=== PATIENT | female | born 1965 ===

== ENCOUNTER 2019-03-20 09:20 | Inpatient (IN) | payer MEDICAID ==
[2019-02-26 12:04] LABS: HEMATOCRIT 44.6 % (37.0-47.0); HEMOGLOBIN 14.6 G/DL (12.0-16.0); MEAN CORPUSCULAR VOLUME 94 FL (80-99); PLATELET COUNT 64 K/UL (150-450); RED BLOOD COUNT 4.77 M/UL (4.20-5.40); RED CELL DISTRIBUTION WIDTH 12.2 % (11.6-14.8); WHITE BLOOD COUNT 5.5 K/UL (4.8-10.8)
[2019-02-26 12:17] LABS: APPEARANCE,URINE CLEAR; BILIRUBIN, URINE NEGATIVE (NEGATIVE); COLOR,URINE PALE YELLOW; GLUCOSE, URINE (UA) NEGATIVE (NEGATIVE); KETONES,URINE NEGATIVE (NEGATIVE); LEUKOCYTE ESTERASE ,URINE 1+ (NEGATIVE); NITRITE,URINE NEGATIVE (NEGATIVE); PH,URINE 7 (4.5-8.0); PROTEIN,URINE NEGATIVE (NEGATIVE); UROBILINOGEN,URINE NORMAL MG/DL (0.0-1.0)
[2019-02-26 12:26] LABS: INR 1.1 (0.9-1.1)
[2019-02-26 12:28] LABS: ANION GAP 6 mmol/L (5-15); BLOOD UREA NITROGEN 4 mg/dL (7-18); CARBON DIOXIDE 28 MMOL/L (21-32); CHLORIDE 109 MMOL/L (98-107); CREATININE 0.6 MG/DL (0.55-1.30); POTASSIUM 3.6 MMOL/L (3.5-5.1); SODIUM 143 MMOL/L (136-145)
--- NOTE | 2019-03-07 16:59 | Cardiology Report ---
APPROVED REPORT EKG Measurement Heart [id number] IL [id number] [id number] Sinus bradycardia Otherwise normal ECG
--- NOTE | 2019-03-16 14:44 | NUR ---
[employer] translation services used to obtained medical history with simulation educator: Britany ID #[id number].
--- NOTE | 2019-03-19 15:45 | Pre-op HX & Phy Repo 2 SIG ---
DATE OF PLANNED SURGERY: March 20, 2019 HISTORY OF PRESENT ILLNESS: The patient is a 53-year-old female, in overall stable health with invasive ductal carcinoma of the right breast. She was scheduled to undergo right breast partial mastectomy including the nipple and areola as well as right axillary lymph node biopsy. The patient presented recently with a right breast mass. Mammogram revealed nipple inversion with a subareolar density. Ultrasound revealed a 2 cm mass at 1 o'clock 1 cm from the nipple under the areolar border. Core biopsy revealed invasive ductal carcinoma. Estrogen and progesterone receptor positive. HER2 negative. Ki-67 borderline at 12%. After appropriate evaluation including consultation with Oncology, the decision has been made to perform a right breast partial mastectomy including the nipple-areolar complex. The patient understands and agrees. PAST MEDICAL HISTORY AND MEDICATIONS: Glipizide for diabetes, lisinopril for hypertension. ALLERGIES: None. OPERATION: section. REVIEW OF SYSTEMS: Para 4, 4. Last menstrual period at age 43; 10 years ago. PHYSICAL EXAMINATION: VITAL SIGNS: The patient is 5 feet, 174 pounds. Vital signs, pulse 70, blood pressure 164/84. HEENT: Within normal limits. LUNGS: Clear. HEART: Regular rhythm. BREASTS: Moderately large and ptotic. The left breast is unremarkable. Right breast has a 2 cm mass abutting the nipple at 1 o'clock under the areola with inverted nipple and fixation to the mass. There is no fixation to the chest wall. There is no palpable axillary or supraclavicular lymphadenopathy. ABDOMEN: Soft. PELVIC AND RECTAL: Per primary care. EXTREMITIES: Without edema. NEUROLOGIC: Physiologic. IMPRESSION: Invasive ductal carcinoma, right breast involving nipple and areola. PLAN: Right breast partial mastectomy to include the nipple and areola, and right axillary lymph node biopsy. DISCUSSION: I have had a full discussion with the patient regarding the nature of her condition, the nature of the surgery, indications, alternatives, options, and risks including bleeding, infection, need for additional surgery or treatments based on final pathology, scarring and deformity of the breast, need for drain for the axilla, etc. All questions have been answered. She understands and agrees to proceed. Prabhjot Burns M.D. DR: RANJIT JOB#: [id number] CC: ROCIO
[~2019-03-20] VITALS: Ht 154.9 cm; Wt 80.3 kg
[2019-03-20] VITALS (16 sets, daily range): BP systolic 117–168; BP diastolic 67–84
[2019-03-20] MEDS ORDERED: LR 1000ml 1,000 ML IVLG SCH (09:39)
[2019-03-20] MEDS ORDERED: Midazolam 2mg/2ml Inj IVP PRN (09:45)
[2019-03-20] MEDS ORDERED: Meperidine 50mg/ml Inj(FOR RIGORS ONLY) IVP PRN (09:45)
[2019-03-20] MEDS ORDERED: HYDROcodone/Acetamin 7.5/325 tab ORAL PRN (09:45)
[2019-03-20] MEDS ORDERED: Atropine Sulfate 0.4mg/ml inj IVP PRN (09:45)
[2019-03-20] MEDS ORDERED: Metoclopramide 10mg/2ml Inj IVP PRN (09:45)
[2019-03-20] MEDS ORDERED: fentaNYL 100 mcg/2 mL IV PRN (09:45)
[2019-03-20] MEDS ORDERED: LORazepam Inj 2mg/ml 1ml IV PRN (09:45)
[2019-03-20] MEDS ORDERED: Hydromorphone 0.5mg/0.5ml inj IVP PRN (09:45)
[2019-03-20] MEDS ORDERED: DiphenhydrAMINE 50mg/ml Inj IVP PRN (09:45)
[2019-03-20] MEDS ORDERED: oxyCODONE HCL/Acetaminophen 5/325mg ORAL PRN (09:45)
[2019-03-20] MEDS ORDERED: HYDROcodone/Acetamin 5/325 tab ORAL PRN ×2 (09:45→13:45)
[2019-03-20] MEDS ORDERED: Ketorolac 30mg Inj IV PRN ×2 (09:45)
[2019-03-20] MEDS ORDERED: Labetalol 5mg/ml 20ml vial IV PRN (09:45)
--- NOTE | 2019-03-20 09:47 | Anethesia Preoperative Eval ---
Anesthesia Pre-op PMH/ROS General Date of Evaluation: Mar 20, 2019 Time of Evaluation: 11:56 Anesthesiologist: Link ASA Score: ASA 3 Mallampati Score Class I : Soft palate, uvula, fauces, pillars visible Class II: Soft palate, uvula, fauces visible Class III: Soft palate, base of uvula visible Class IV: Only hard plate visible Mallampati Classification: Class III Surgeon: Grant Diagnosis: Right Breast CA Surgical Procedure: Mastectomy, Lymph Node Bx, Right Anesthesia History: none Family History: no anesthesia problems Allergies: Coded Allergies: No Known Allergies (Unverified , 03/20/19) Medications: see eMAR Patient NPO?: Yes Past Medical History Cardiovascular: Reports: HTN Gastrointestinal/Genitourinary: Reports: GERD, other - Cirrohsis Endocrine: Reports: DM PSxH Narrative: C/S Anesthesia Pre-op Phys. Exam Physician Exam vital Vital Signs Date Time Temp Pulse Resp B/P (MAP) Pulse Ox O2 Delivery O2 Flow Rate FiO2 03/20/19 10:14 98.1 67 18 139/79 (99) 95 03/20/19 10:14 Room Air Constitutional: NAD Neurologic: CN 2-12 intact Cardiovascular: RRR Respiratory: CTA Gastrointestinal: S/NT/ND Airway Exam Mallampati Score: Class III MO: limited ROM: limited Teeth: missing, intact Anesthesia Pre-op A/P Risk Assessment & Plan Assessment: ASA 3 Plan: GA, SED Status Change Before Surgery: No Pre-Antibiotics Dru Gram Ancef IV Given Within 1 Hr of Incision: Yes Time Given: 12:11 Phil Maza MD Mar 20, 2019 09:47
--- NOTE | 2019-03-20 09:48 | Immediate Post-Op Evaluation ---
Immediate Post-Op Evalulation Immediate Post-Op Evalulation Procedure: Mastectomy, Lymph Node Bx, Right Date of Evaluation: Mar 20, 2019 Time of Evaluation: 13:53 IV Fluids: 800 LR Blood Products: 0 Estimated Blood Loss: 25 Urinary Output: 0 Blood Pressure Systolic: 127 Blood Pressure Diastolic: 70 Pulse Rate: 69 Respiratory Rate: 16 O2 Sat by Pulse Oximetry: 100 Temperature (Fahrenheit): 97.2 Pain Score (1-10): 2 Nausea: No Vomiting: No Complications 0 Patient Status: awake, reacts, patent, extubated, none Hydration Status: adequate Dru Gram Ancef IV Given Within 1 Hr of Incision: Yes Time Given: 12:11 Phil Maza MD Mar 20, 2019 09:48
[2019-03-20] MEDS ORDERED: Lidocaine 1% MPF 10mg/ml 5ml ONE (09:49)
[2019-03-20] MEDS ORDERED: Acetaminophen (Non formulary) 100 ML IV ONE (10:00)
[2019-03-20] MEDS ORDERED: GLIPIZIDE10 MG PO (10:21)
[2019-03-20] MEDS ORDERED: LISINOPRIL30 MG ORAL (10:21)
[2019-03-20] MEDS ORDERED: Lidocaine 1% Plain 30 ml INJ ONE (11:12)
[2019-03-20 11:43] LABS: HEMATOCRIT 41.2 % (37.0-47.0); HEMOGLOBIN 13.7 G/DL (12.0-16.0); MEAN CORPUSCULAR VOLUME 93 FL (80-99); PLATELET COUNT 68 K/UL (150-450); RED BLOOD COUNT 4.42 M/UL (4.20-5.40); RED CELL DISTRIBUTION WIDTH 12.7 % (11.6-14.8); WHITE BLOOD COUNT 5.2 K/UL (4.8-10.8)
[2019-03-20 11:48] LABS: INR 1.1 (0.9-1.1)
[2019-03-20] MEDS ORDERED: Propofol 200mg/20ml IV ONE (12:00)
[2019-03-20] MEDS ORDERED: LR 1000ml ONE (12:01)
[2019-03-20] MEDS ORDERED: Sterile Water Irrig 1000ml IRRIG ONE ×2 (12:01→12:30)
--- NOTE | 2019-03-20 12:03 | Pre-Procedure Note/Attestation ---
Pre-Procedure Note/Attestation Complete Prior to Procedure Planned Procedure: right Procedure Narrative: right breast partial mastectomy including nipple and areola and right axillary lymph node biopsy Indications for Procedure Pre-Operative Diagnosis: invasive ductal carcinoma right breast right breast Attestation I attest that I discussed the nature of the procedure; its benefits; risks and complications; and alternatives (and the risks and benefits of such alternatives ), prior to the procedure, with the patient (or the patient's legal novelties sales representative). I attest that, if there was a reasonable possibility of needing a blood transfusion, the patient (or the patient's legal novelties sales representative) was given the [facility] standardized written summary, pursuant to the [place] Blood Safety Act ([place] Health and Safety Code # 1645, as amended). I attest that I re-evaluated the patient just prior to the surgery and that there has been no change in the patient's H&P, except as documented below: platelet count 68,000 known to patient due to history of cirrhosis. She does not have any issues with prolonged bleeding with cuts or scratches and this is a chronic finding. Will proceed with surgery. Prabhjot Burns MD Mar 20, 2019 12:02
--- NOTE | 2019-03-20 13:43 | Brief Operative Note ---
Immediate Post Operative Note Operative Note Pre-op Diagnosis: invasive ductal carcinoma right breast right breast Procedure: right breast partial mastectomy including nipple and right axillary lymph node biopsy Post-op Diagnosis: same Post-op Diagnosis: same as pre-op Findings: consistent w/pre-op dx studies Surgeon: savanah Anesthesiologist: rafaela Anesthesia: general Specimen: yes - right breast tissue, right axillary lymph nodes Complications: none Condition: stable Fluids: see anesthesia record Estimated Blood Loss: minimal Drains: LOTUS Implant(s) used?: No Prabhjot Burns MD Mar 20, 2019 13:43
[2019-03-20] MEDS ORDERED: HYDROmorphone 1mg/ml Carpuject SUBQ PRN (13:45)
--- NOTE | 2019-03-20 15:00 | NUR ---
NURSE NOTES: Patient arrived to unit at 1450 accompanied by RN. Patient is drowsy on arrival but responsive to voice. Oriented x4, belarusian speaking only. No acute distress noted, patient reports "a little bit of pain" in right breast. Surgical dressing clean, dry, intact. Patient on 2L NC, SCD's in place. Patient and her updated on plan of care, patient placed on continuous pulseox. Side rails upx3, bed low and locked, call light in reach. Will continue to monitor.
--- NOTE | 2019-03-20 16:15 | NUR ---
NURSE NOTES: Received orders from Dr. Burns for patient's home medications glipizide and lisinopril, MD is aware patient's blood pressure running in the 150's, no PRN's ordered at this time, MD ordered to give first dose of scheduled lisinopril now. Also received order for accuchecks and to call MD for blood sugar >200. All orders entered.
[2019-03-20] MEDS: Lisinopril 20mg tab ORAL SCH (16:33)
[2019-03-20] MEDS: GlipiZIDE 5mg tab ORAL SCH (16:33)
--- NOTE | 2019-03-20 16:45 | Operative Note - Dictated ---
DATE OF OPERATION: 03/20/2019 SURGEON: Prabhjot Burns M.D. DIRECTOR OUTPATIENT SERVICES: None. ANESTHESIOLOGIST: Phil Maza M.D. TYPE OF ANESTHESIA: General endotracheal. PREOPERATIVE DIAGNOSIS: Invasive ductal carcinoma, right breast. POSTOPERATIVE DIAGNOSIS: Invasive ductal carcinoma, right breast. OPERATION PERFORMED: Right breast partial mastectomy including nipple areolar complex and right axillary lymph node biopsy. DESCRIPTION OF PROCEDURE: The patient was taken to the operating room and under general anesthesia with sequential compression device stockings in place, she was prepped and draped in usual fashion. Lesion was located right under the nipple at 1 o'clock 1 cm from the nipple with a 2 cm mass with inversion of the nipple. An elliptical incision was outlined and incised and then a partial mastectomy performed achieving hemostasis with cautery. The specimen was oriented with sutures superior and medial, and the specimen was inspected by Pathology, who felt that the margins were clear. The field was irrigated and hemostasis secured with cautery. The incision was closed in layers with interrupted 2-0 and 3-0 Vicryl and skin closed with jt. An axillary incision was made achieving hemostasis with cautery and incising the clavipectoral fascia. Some obvious lymph nodes were present, which were excised using the [employer] electric surgical device and 2-0 Vicryl ties. Through a separate stab incision inferiorly, a 10 mm flat Hugo-Toro was placed into the axilla and sutured to the skin with 2-0 nylon skin suture. The field was irrigated and hemostasis secured with cautery. The clavipectoral fascia was closed with interrupted 2-0 Vicryl, subcutaneous tissues closed with interrupted 2-0 Vicryl, and skin closed with continuous 4-0 Monocryl subcuticular suture. Mastisol and half-inch Steri-Strips were applied followed by dry sterile dressings to both incisions. Final sponge and needle counts were correct. Postoperative surgical brassiere was applied. The patient tolerated the procedure well and left the operating room in good condition. Prabhjot Burns M.D. DR: [place] JOB#: [id number] CC:
--- NOTE | 2019-03-20 19:30 | NUR ---
HAND-OFF: Report given to Jeison RHODES. Patient is in stable condition.
--- NOTE | 2019-03-20 19:30 | NUR ---
NURSE NOTES: Received report from MEAGAN Kruse. Received pt in bed, AOx4, denies any pain, no distress noted. Surgical dressing C/D/I. IV L hand patent and intact. Bed in lowest position and locked, side rails up x 2, call light within reach. Will continue to monitor.
--- NOTE | 2019-03-20 20:00 | NUR ---
NURSE NOTES: B/P 168/81, HR 76. Pt denies any pain, no distress noted. Called and left message for Dr. Burns regarding pt's B/P awaiting for call back. Will continue to monitor.
[2019-03-20] MEDS: ceFAZolin sod 1 GM in D5W 55 ML IV SCH (20:17)
--- NOTE | 2019-03-20 20:33 | NUR ---
NURSE NOTES: Dr. Burns called back no order given for B/P. Per MD, monitor B/P and will address in am.
--- NOTE | 2019-03-20 21:30 | NUR ---
NURSE NOTES: Pt voided in the restroom without difficulty. Safely back in bed, denies any pain, no distress noted.
[2019-03-21] VITALS: BP 155/79
[2019-03-21] MEDS: ceFAZolin sod 1 GM in D5W 55 ML IV SCH (03:49)
[2019-03-21 04:00] VITALS: BP 161/78
--- NOTE | 2019-03-21 04:00 | NUR ---
NURSE NOTES: B/P 161/78, HR 74 pt denies any pain, no distress noted. Will continue to monitor.
[2019-03-21] MEDS: GlipiZIDE 5mg tab ORAL SCH (05:55)
--- NOTE | 2019-03-21 07:21 | NUR ---
HAND-OFF: Report given to MEAGAN Padilla. Pt in stable condition.
--- NOTE | 2019-03-21 07:46 | General Progress Note ---
Progress Note Progress Note Doing well AVSS Not using analgesics Right breast and axilla incisions are clean and dry. LTOUS 10cc serosang overnight Imp. doing well Plan: discharge with supplies to use tylenol or ibuprofen prn pain to maintain LOTUS drain outputs record f/u office 03/28 instructions/limitations/supplies discussed/provided Prabhjot Burns MD Mar 21, 2019 07:46
--- NOTE | 2019-03-21 07:48 | 48 Hour Post Anesthesia Eval ---
Post Anesthesia Evaluation Procedure: Mastectomy, Lymph Node Bx, Right Date of Evaluation: Mar 21, 2019 Time of Evaluation: 07:47 Blood Pressure Systolic: 162 0: 78 Pulse Rate: 58 Respiratory Rate: 18 Temperature (Fahrenheit): 97.6 O2 Sat by Pulse Oximetry: 98 Airway: patent Nausea: No Vomiting: No Pain Intensity: 2 Hydration Status: adequate Cardiopulmonary Status: stable Mental Status/LOC: patient returned to baseline Follow-up Care/Observations: n/a Post-Anesthesia Complications: none Follow-up care needed: ready to discharge Jhoan Wang MD Mar 21, 2019 07:48
--- NOTE | 2019-03-21 08:05 | NUR ---
NURSE NOTES: During shift change patient alert awake with out no distress, dressing changed by Grant Carrillo pt. aware discharge home today reported family will come after work, will continue to monitor.
[2019-03-21 08:39] VITALS: BP 141/70
[2019-03-21] MEDS: Lisinopril 20mg tab ORAL SCH (08:40)
[2019-03-21 12:00] VITALS: BP 148/71
--- NOTE | 2019-03-21 13:28 | NUR ---
NURSE NOTES: Patient discharged from the unit stable condition, during discharge patient accompanied by family members, discharge instruction provided, supplies given for dressing change and LOTUS drain emptying cups and recording log form, patient instructed to follow up appointment to see Dr. Burns Tuesday 10am and to take the drain out put record with patient. Pain medication prescription given transported from the unit to personal vehicle by wheelchair and transferred to personal vehicle safely.
--- NOTE | 2019-03-21 13:58 | NUR ---
CASE MANAGEMENT:REVIEW 53YR OLD FEMALE HERE FOR ELECTIVE SURGERY SI: BREAST CANCER 97.2 69 12 137/67 99% ON RA IS: TO SURGERY FOR: RT BREAST PARTIAL MASTECTOMY IV ANCEF Q8HR : TO MED/SURG 3 03/21/19 DISCHARGE
--- NOTE | 2019-03-22 13:35 | Discharge Summary ---
Discharge Summary Hospital Course Date of Admission Mar 20, 2019 at 15:19 Date of Discharge Mar 21, 2019 at 13:08 Admitting Diagnosis Right breast carcinoma Reason for Hospitalization: elective surgery KALINA Kern is a 53 year old female who was admitted on Mar 20, 2019 at 15:19 for Breast Cancer Procedures s/p 03/20/[address] Burns Right breast partial mastectomy including nipple areolar complex and right axillary lymph node biopsy. Hospital Course status post surgery course of recovery uneventful initially IV fluids s/p perioperative antibiotic right breast and axilla incisions clean and dry LOTUS drain output closely monitored; output small -about 10cc serosanguineous drainage patient was taught care of LOTUS drain pain management was addressed ; pain controlled patient remained hemodynamically stable ambulated tolerated diet voided freely blood pressure was managed with lisinopril blood sugar was managed with glipizide. DVT prophylaxis provided use of incentive spirometry was encouraged while in the bed bowel regimen instituted patient was stable for discharge discharge instructions provided : 1. use Tylenol or ibuprofen as needed for pain. 2. maintain LOTUS drain output record 3. follow up with surgeon in the office on 03/28 discharge instructions/limitation/supplies discussed and provided follow-up with the pathology report (at the time of this dictation still pending ) FINAL DIAGNOSES Invasive ductal carcinoma, right breast, involving nipple and areola s/p Right breast partial mastectomy including nipple areolar complex and right axillary lymph node biopsy HTN DM Discharge Condition Upon Discharge: stable Discharge Disposition Patient was discharged home Discharge Instructions Discharge Instructions Special Instructions I have been assigned to complete a D/C Summary on this account. I was not involved in the patient management Alejandrina Zhou NP Mar 22, 2019 13:35
== END 2019-03-21 13:08 | disposition home or self-care (01) | DRG 363 ==
LOC: SUR 09:20 → 3E 15:19
PROC: 07B50ZX Excision of Right Axillary Lymphatic, Open Approach, Diagnostic (ICD-10-PCS; 2019-03-20)
PROC: 0HBT0ZZ Excision of Right Breast, Open Approach (ICD-10-PCS; principal; 2019-03-20 11:30)
DX: C50.011 Malignant neoplasm of nipple and areola, right female breast (principal); E11.9 Type 2 diabetes mellitus without complications; Z17.0 Estrogen receptor positive status [ER+]; Z79.84 Long term (current) use of oral hypoglycemic drugs; I10 Essential (primary) hypertension
CPT/HCPCS: 36415; 80048; 81003; 82962; 85007; 85025; 85610; 85730; 87081; 93005; 94003; 94150; J2250; J2405